=== PATIENT | male | born 1960 | race Caucasian/White ===

== ENCOUNTER 2024-07-09 03:05 | Emergency (ER) | payer BC ==
[2024-07-09 04:09] LABS: APPEARANCE,URINE CLOUDY (CLEAR); BILIRUBIN,URINE NEGATIVE (NEGATIVE); COLOR,URINE AMBER (YELLOW); GLUCOSE,URINE 500 (NEGATIVE); KETONES,URINE NEGATIVE (NEGATIVE); LEUKOCYTE ESTERASE,URINE TRACE (NEGATIVE); NITRITE,URINE NEGATIVE (NEGATIVE); OCCULT BLOOD,URINE LARGE (NEGATIVE); PROTEIN,URINE >=300 (NEGATIVE); UROBILINOGEN,URINE 0.2 mg/dL (0.2-1.0)
[2024-07-09 04:20] LABS: BACTERIA,URINE FEW /HPF (0-FEW/HPF); EPITHELIAL CELLS,URINE RARE /HPF (NOT SEEN); MUCUS,URINE FEW /LPF (NOT SEEN); RBC,URINE PACKED /HPF (0-5)
[2024-07-09] MEDS: Lidocaine 2% Jelly 10 ML Urojet MUCMEM ONE (04:33)
== END 2024-07-09 05:03 | disposition home or self-care (01) ==
LOC: DL.ED 03:05
DX: N99.89 Other postprocedural complications and disorders of genitourinary system (principal); Z46.6 Encounter for fitting and adjustment of urinary device
CPT/HCPCS: 51702; 81001; 99284; A9270-GY

== ENCOUNTER 2024-09-13 15:24 | Observation (INO) | payer BC ==
[2024-09-13 16:33] LABS: O2 DELIVERY DEVICE ROOM AIR
[2024-09-13 16:41] LABS: BASOPHILS PERCENT AUTO 0.3 % (0.0-1.0); EOSINOPHILS PERCENT AUTO 2.3 % (1.0-3.0); HEMATOCRIT 41.5 % (40.0-54.0); HEMOGLOBIN 14.2 g/dL (14.0-18.0); LYMPHOCYTES PERCENT AUTO 18.9 % (20.5-50.1); MEAN CORPUSCULAR HGB CONC 34.2 g/dL (33.0-35.0); MEAN CORPUSCULAR VOLUME 93.5 fL (80-100); MONOCYTES PERCENT AUTO 9.7 % (2-8); NEUTROPHILS PERCENT AUTO 68.8 % (42.2-75.2); PLATELET COUNT,PLT 512 10^3/uL (150-450); RED BLOOD CELL COUNT 4.44 10^6/uL (4.6-6.2)
[2024-09-13 16:48] LABS: BASE EXCESS VENOUS 4.1 mmol/l ((-2)-(+3)); BICARBONATE,VENOUS 31 mmol/l (19-25); PCO2 VENOUS 56 mmHg (41-51); PH,VENOUS 7.36 (7.31-7.41); PO2 VENOUS 41 mmHg (35-42)
[2024-09-13] MEDS: Sodium Chloride 0.9% 2,000 ML IV ONE (16:56)
[2024-09-13] MEDS: Sodium Chloride 0.9% 1,000 ML IV ONE ×2 (17:11→20:35)
[2024-09-13 17:23] LABS: ALANINE AMINOTRANSFERASE,ALT 19 U/L (16-63); ALBUMIN 2.8 g/dL (3.4-5.0); ALKALINE PHOSPHATASE 143 U/L (46-116); ASPARTATE AMNIOTRANSFERASE,AST 6 U/L (15-37); BILIRUBIN TOTAL 0.2 mg/dL (0.2-1.0); BLOOD UREA NITROGEN,BUN 32 mg/dL (7-18); BUN/CREATININE RATIO 20.6 (No establ ref range); CALCIUM 8.9 mg/dL (8.5-10.1); CARBON DIOXIDE,CO2 30 mmol/L (21-32); CHLORIDE,CL 91 mmol/L (98-107); CREATININE 1.55 mg/dL (0.70-1.30); EST CRCL DRUG DOSING (CG) 52.85 mL/min; MAGNESIUM 2.1 mg/dL (1.8-2.4); PROTEIN TOTAL,TP 7.1 g/dL (6.4-8.2); SODIUM,NA 128 mmol/L (136-145)
[2024-09-13 17:24] LABS: A/G RATIO 0.65; ESTIMATED GFR 50 mL/min (>=60); GLUCOSE RANDOM 588 mg/dL (70-99)
[2024-09-13 17:50] LABS: APPEARANCE,URINE CLOUDY (CLEAR); BILIRUBIN,URINE NEGATIVE (NEGATIVE); COLOR,URINE YELLOW (YELLOW); GLUCOSE,URINE 500 (NEGATIVE); KETONES,URINE NEGATIVE (NEGATIVE); LEUKOCYTE ESTERASE,URINE SMALL (NEGATIVE); NITRITE,URINE POSITIVE (NEGATIVE); OCCULT BLOOD,URINE SMALL (NEGATIVE); PROTEIN,URINE NEGATIVE (NEGATIVE); UROBILINOGEN,URINE 0.2 mg/dL (0.2-1.0)
[2024-09-13 17:59] LABS: LACTIC ACID 0.9 mmol/L (0.4-2.0)
[2024-09-13 18:06] LABS: EPITHELIAL CELLS,URINE FEW /HPF (NOT SEEN); WBC,URINE >100 /HPF (0-5/HPF)
[2024-09-13 18:08] LABS: BACTERIA,URINE FEW /HPF (0-FEW/HPF); RBC,URINE 0-5 /HPF (0-5)
[2024-09-13] MEDS: cefTRIAXone 1 GM Vial IVPUSH ONE (18:13)
[2024-09-13] MEDS ORDERED: Albuterol/Ipratropium 3.0-0.5 MG/3 ML Neb Soln NEB PRN (19:19)
[2024-09-13] MEDS ORDERED: HYDROmorphone 0.5 MG/0.5 ML Syringe IVPUSH PRN (19:19)
[2024-09-13] MEDS ORDERED: Temazepam 15 MG Cap PO PRN (19:19)
[2024-09-13] MEDS ORDERED: Sennosides/Docusate Sodium 50-8.6 MG Tab PO PRN (19:19)
[2024-09-13] MEDS ORDERED: Magnesium Hydroxide 400 MG/5 ML Susp 30 ML Cup PO PRN (19:19)
[2024-09-13] MEDS ORDERED: Naloxone 2 MG/2 ML Syringe IVPUSH PRN (19:19)
[2024-09-13] MEDS ORDERED: Acetaminophen/oxyCODONE 325-5 MG Tab PO PRN (19:19)
[2024-09-13] MEDS ORDERED: Acetaminophen 325 MG Tab PO PRN (19:19)
[2024-09-13] MEDS ORDERED: Polyethylene Glycol 3350 Powder 17 GM Packet PO PRN (19:19)
[2024-09-13] MEDS ORDERED: Ondansetron 4 MG/2 ML SDV IVPUSH PRN (19:19)
[2024-09-13] MEDS ORDERED: Melatonin 3 MG Tab PO PRN (19:46)
[2024-09-13] MEDS ORDERED: 50% Dextrose in Water 50 ML Syringe IVPUSH PRN (19:56)
[2024-09-13] MEDS ORDERED: Glucagon,Human Recombinant 1 MG Vial IM PRN (19:56)
[2024-09-13 20:08] LABS: KETONES,BLOOD NEGATIVE
[2024-09-13 20:10] LABS: PHOSPHORUS 3.6 mg/dL (2.6-4.7)
[2024-09-13 20:10] LABS: O2 DELIVERY DEVICE ROOM AIR
[2024-09-13 20:11] LABS: ALLEN TEST PERFORMED; BASE EXCESS ARTERIAL 1 mmol/L ((-2)-(+3)); BICARBONATE,ARTERIAL 25.3 mmol/L (22-26); O2 SATURATION ARTERIAL 96 % (95-100); PCO2 ARTERIAL 42 mmHg (35-45); PO2 ARTERIAL 74 mmHg (70-100)
[2024-09-13 20:11] LABS: C-REACTIVE PROTEIN 3.06 ng/dL (<=0.50)
[2024-09-13 20:18] LABS: ANION GAP 11.2 mEq/L (7-13); CALCIUM 8.9 mg/dL (8.5-10.1); CREATININE 1.39 mg/dL (0.70-1.30); EST CRCL DRUG DOSING (CG) 58.93 mL/min; POTASSIUM,K 4.2 mmol/L (3.5-5.1)
[2024-09-13] MEDS: Potassium Chloride 10 MEQ in Premix Bag 1 BAG IV ONE (20:35)
[2024-09-13] MEDS ORDERED: Sodium Chloride 0.9% 1,000 ML IV SCH (21:15)
[2024-09-13] MEDS: Azithromycin 500 MG in Sodium Chloride 0.9% 250 ML IV SCH (22:29)
[2024-09-13] MEDS: cefTRIAXone 1 GM Vial IVPUSH SCH (22:29)
[2024-09-13 22:31] LABS: ANION GAP 11.9 mEq/L (7-13); CALCIUM 8.6 mg/dL (8.5-10.1); CREATININE 1.18 mg/dL (0.70-1.30); EST CRCL DRUG DOSING (CG) 69.42 mL/min; PHOSPHORUS 2.5 mg/dL (2.6-4.7); POTASSIUM,K 3.9 mmol/L (3.5-5.1)
[2024-09-13] MEDS: Potassium Chloride 20 MEQ in Premix Bag 1 BAG IV ONE (23:14)
[2024-09-13] MEDS: Insulin Glarg,Human.Rec.Analog 100 Unit/ML 10 ML Vial SUBCUT ONE (23:45)
[2024-09-14 00:07] LABS: ANION GAP 12.8 mEq/L (7-13); CALCIUM 8.6 mg/dL (8.5-10.1); CREATININE 1.07 mg/dL (0.70-1.30); EST CRCL DRUG DOSING (CG) 76.55 mL/min; PHOSPHORUS 2.7 mg/dL (2.6-4.7); POTASSIUM,K 3.8 mmol/L (3.5-5.1)
[2024-09-14] MEDS: Dextrose 5%-0.9% NaCl with KCl 1,000 ML IV SCH (00:51)
[2024-09-14 02:25] LABS: CALCIUM 8.7 mg/dL (8.5-10.1); CREATININE 0.97 mg/dL (0.70-1.30); EST CRCL DRUG DOSING (CG) 84.44 mL/min; PHOSPHORUS 2.6 mg/dL (2.6-4.7)
[2024-09-14 06:55] LABS: BASOPHILS PERCENT AUTO 0.3 % (0.0-1.0); EOSINOPHILS PERCENT AUTO 3.4 % (1.0-3.0); HEMATOCRIT 40.2 % (40.0-54.0); HEMOGLOBIN 13.8 g/dL (14.0-18.0); LYMPHOCYTES PERCENT AUTO 18.5 % (20.5-50.1); MEAN CORPUSCULAR HEMOGLOBIN 31.9 pg (27.0-34.0); MEAN CORPUSCULAR HGB CONC 34.3 g/dL (33.0-35.0); MEAN CORPUSCULAR VOLUME 93.1 fL (80-100); NEUTROPHILS PERCENT AUTO 67.8 % (42.2-75.2); PLATELET COUNT,PLT 493 10^3/uL (150-450); RED BLOOD CELL COUNT 4.32 10^6/uL (4.6-6.2); WHITE BLOOD CELL COUNT,WBC 14.9 10^3/uL (5.0-10.0)
[2024-09-14 07:13] LABS: HEMOGLOBIN A1C 11.2 % (<5.7)
[2024-09-14 07:20] LABS: ALBUMIN 2.5 g/dL (3.4-5.0); BILIRUBIN TOTAL 0.3 mg/dL (0.2-1.0); BUN/CREATININE RATIO 18.1 (No establ ref range); C-REACTIVE PROTEIN 2.67 ng/dL (<=0.50); CALCIUM 8.9 mg/dL (8.5-10.1); CREATININE 0.94 mg/dL (0.70-1.30); EST CRCL DRUG DOSING (CG) 87.14 mL/min; MAGNESIUM 1.7 mg/dL (1.8-2.4); PHOSPHORUS 2.8 mg/dL (2.6-4.7); PROTEIN TOTAL,TP 6.6 g/dL (6.4-8.2)
[2024-09-14 07:25] LABS: A/G RATIO 0.61
[2024-09-14] MEDS: Enoxaparin 40 MG/0.4 ML Syringe SUBCUT SCH (09:05)
[2024-09-14] MEDS: Nicotine 21 MG/24 Hr Patch TRDERM SCH (09:06)
[2024-09-14] MEDS ORDERED: Sodium Chloride 0.9% 10 ML Syringe FLUSH PRN (10:32)
[2024-09-14] MEDS: Magnesium Oxide 400 MG Tab PO SCH (10:40)
[2024-09-14 12:02] LABS: ANION GAP 11.1 mEq/L (7-13); CALCIUM 8.8 mg/dL (8.5-10.1); CREATININE 0.95 mg/dL (0.70-1.30); EST CRCL DRUG DOSING (CG) 86.22 mL/min; POTASSIUM,K 4.1 mmol/L (3.5-5.1)
[2024-09-14] MEDS: methylPREDNISolone Sodium Succinate 40 MG/1 ML SDV IVPUSH SCH (12:12)
[2024-09-14] MEDS: Oxybutynin 5 MG Tab.ER PO SCH (12:13)
[2024-09-14] MEDS: Insulin Lispro 100 Units/ML 3 ML Vial SUBCUT SCH (12:15)
[2024-09-14] MEDS: Albuterol/Ipratropium 3.0-0.5 MG/3 ML Neb Soln NEB SCH (13:56)
[2024-09-14 15:49] LABS: ANION GAP 12.6 mEq/L (7-13); CREATININE 1.09 mg/dL (0.70-1.30); EST CRCL DRUG DOSING (CG) 75.15 mL/min; POTASSIUM,K 4.6 mmol/L (3.5-5.1)
[2024-09-14 19:51] LABS: ANION GAP 11.7 mEq/L (7-13); CREATININE 1.34 mg/dL (0.70-1.30); EST CRCL DRUG DOSING (CG) 61.13 mL/min; POTASSIUM,K 4.7 mmol/L (3.5-5.1)
[2024-09-14] MEDS: Tamsulosin 0.4 MG Cap.ER PO SCH (20:53)
[2024-09-14] MEDS: atorvaSTATin 10 MG Tab PO SCH (20:53)
[2024-09-14] MEDS ORDERED: Insulin Glarg,Human.Rec.Analog 100 Unit/ML 10 ML Vial SUBCUT SCH (21:00)
[2024-09-14] MEDS: Insulin Glarg,Human.Rec.Analog 100 Unit/ML 10 ML Vial SUBCUT SCH (21:00)
[2024-09-15 06:50] LABS: BASOPHILS PERCENT AUTO 0.2 % (0.0-1.0); EOSINOPHILS PERCENT AUTO 0.1 % (1.0-3.0); LYMPHOCYTES PERCENT AUTO 9.2 % (20.5-50.1); MEAN CORPUSCULAR HEMOGLOBIN 31.5 pg (27.0-34.0); MEAN CORPUSCULAR HGB CONC 33.3 g/dL (33.0-35.0); MEAN CORPUSCULAR VOLUME 94.4 fL (80-100); MONOCYTES PERCENT AUTO 4.2 % (2-8); NEUTROPHILS PERCENT AUTO 86.3 % (42.2-75.2); PLATELET COUNT,PLT 504 10^3/uL (150-450); RED BLOOD CELL COUNT 4.45 10^6/uL (4.6-6.2); WHITE BLOOD CELL COUNT,WBC 14.8 10^3/uL (5.0-10.0)
[2024-09-15 07:29] LABS: ALBUMIN 2.6 g/dL (3.4-5.0); BILIRUBIN TOTAL 0.3 mg/dL (0.2-1.0); C-REACTIVE PROTEIN 2.02 ng/dL (<=0.50); CALCIUM 9.3 mg/dL (8.5-10.1); CREATININE 1.16 mg/dL (0.70-1.30); EST CRCL DRUG DOSING (CG) 70.61 mL/min; MAGNESIUM 1.9 mg/dL (1.8-2.4)
[2024-09-15 07:32] LABS: A/G RATIO 0.59
[2024-09-15] MEDS: Lisinopril 10 MG Tab PO SCH (08:48)
[2024-09-15] MEDS: Insulin Glarg,Human.Rec.Analog 100 Unit/ML 10 ML Vial SUBCUT SCH (08:54)
[2024-09-15] MEDS: FLU (Fluarix Triv) TS24-25(6MOS UP)/PF 45 MCG/0.5 ML Syringe IM ONE (13:33)
[2024-09-15] MEDS: Pneumococcal 20-Valent Conjug 0.5 ML Syringe IM ONE (13:34)
== END 2024-09-15 14:00 | disposition home or self-care (01) ==
LOC: DL.ED 15:24 → UNDOADMOB 18:04 → DL.MS 18:04 → DL.ED 18:35
PROVIDERS: ADMIT Internal Medicine; ATTEND Internal Medicine
DX: E11.9 Type 2 diabetes mellitus without complications (principal); I10 Essential (primary) hypertension; J44.1 Chronic obstructive pulmonary disease with (acute) exacerbation; E78.00 Pure hypercholesterolemia, unspecified; F17.210 Nicotine dependence, cigarettes, uncomplicated; Z79.4 Long term (current) use of insulin; Z79.899 Other long term (current) drug therapy
CPT/HCPCS: 36415; 36600; 71045; 80048; 80053; 81001; 82009; 82550; 82803; 82947; 83036; 83605; 83735; 83930; 84100; 84484; 85025; 86140; 87040; 87086; 87428; 90656; 90677; 96361; 96365; 96366; 96367; 96372; 96375; 96376; 99223; 99232; 99238; 99285; A9270; G0378; J0456; J0696; J1650; J1815; J2919; J3480; J7030; J7050; 96374; J7620-GY